=== PATIENT | female | born 2000 | race Caucasian/White ===

== ENCOUNTER 2023-10-03 08:05 | Emergency (ER) | payer OTHER ==
[~2023-10-03] VITALS: Ht 162.6 cm; Wt 97.7 kg
[2023-10-03 08:07] VITALS: TEMP 98
[2023-10-03] MEDS ORDERED: Ondansetron 4 MG/2 ML VIAL IV ONE (08:30)
[2023-10-03] MEDS ORDERED: NS 1,000 ML IV ONE (08:30)
[2023-10-03] MEDS ORDERED: Pantoprazole 40 MG in NS 10 ML IV ONE (08:30)
[2023-10-03] MEDS ORDERED: Morphine 4 MG/ML VIAL IV ONE (08:30)
[2023-10-03 09:16] LABS: BASO # 0.1 K/mm3 (0.0-0.2); BASO % 0.5 % (0.0-2.0); EOS # 0.1 K/mm3 (0.0-0.7); EOS % 0.4 % (0.0-4.0); GRAN # 10.8 K/mm3 (1.4-6.5); GRAN % 74.9 % (42.2-75.2); HEMATOCRIT 44.8 % (37.0-47.0); LYMPH # 2.4 K/mm3 (1.2-3.4); LYMPH % 16.8 % (20.0-51.0); MEAN CELL VOLUME 88 fl (80.0-100.0); MEAN CORPUSCULAR HEMOGLOBIN 29 pg (27-31); MEAN CORPUSCULAR HGB CONC 34 g/dl (33.0-37.0); MEAN PLATELET VOLUME 9.6 fl (7.4-10.4); PLATELET COUNT 433 K/mm3 (130-400); RED BLOOD COUNT 5.12 M/mm3 (4.10-5.30); REDCELL DISTRIBUTION WIDTH-CV 12.8 % (11.5-14.5)
[2023-10-03 09:32] LABS: ALBUMIN 4.4 g/dL (3.5-5.0); BILIRUBIN,TOTAL 0.8 mg/dL (0.2-1.2); CALCIUM 9.8 mg/dL (8.4-10.2); CREATININE, serum 0.81 mg/dL (0.57-1.11); POTASSIUM 3.7 mEq/L (3.5-4.5); TOTAL PROTEIN 7.9 g/dl (6.2-8.1)
[2023-10-03] MEDS ORDERED: Iohexol 350 - 100 ML VIAL IV ONE (10:03)
[2023-10-03] MEDS ORDERED: NS 100 ML IV SCH (10:03)
[2023-10-03] MEDS ORDERED: PROTONIX 40MG T40 MG PO (10:23)
[2023-10-03] MEDS ORDERED: ZOFRAN ODT4 MG PO (10:23)
[2023-10-03 10:35] VITALS: BP 117/81; PULSE 81
== END 2023-10-03 10:40 | disposition home or self-care (01) ==
LOC: COL.ER 08:05
PROVIDERS: Personal Emergency Response Attendant
DX: K29.70 Gastritis, unspecified, without bleeding (principal)
CPT/HCPCS: J2270; J2405; J2470; J7030; Q9967